=== PATIENT | male | born 1950 | race Caucasian/White ===

== ENCOUNTER → 2017-10-05 | Outpatient (CLI) | payer OTHER ==
[~2017-10-05] MED LIST: IOPAMIDOL (ISOVUE-300) 100 ML BTL ONE
== END ==
LOC: FIMAGING 08:04
PROVIDERS: ATTEND Family Medicine
DX: K59.00 Constipation, unspecified (principal); Z85.51 Personal history of malignant neoplasm of bladder
CPT/HCPCS: 74177; Q9967

== ENCOUNTER → 2018-12-04 | Outpatient (CLI) | payer OTHER | LOC: CIMAGING 08:11 | PROVIDERS: ATTEND Family Medicine | DX: R91.8 Other nonspecific abnormal finding of lung field (principal); K76.0 Fatty (change of) liver, not elsewhere classified; R06.02 Shortness of breath; Z87.891 Personal history of nicotine dependence; Z85.51 Personal history of malignant neoplasm of bladder | CPT/HCPCS: 71250-PO ==